=== PATIENT | male | born 1965 | race African-American/Black ===

== ENCOUNTER → 2021-03-03 | Day surgery (SDC) | payer OTHER ==
[~2021-03-03] MED LIST: BISA-42 PO; ERGO500089 PO; GLUC-11 PO; HYDROmorphone 2 MG/ML VIAL IVP PRN; IBUP-1007 PO; IV RINGERS,LACTATED 1000ML 1,000 ML IV SCH; LIDOCAINE 2% PF 5 ML VIAL. ONE; MORPHINE SULFATE 2 MG/ML INJ. IVP PRN; PHENYLEPHRINE in 0.9% NACL PF 1 MG/10 ML SYRINGE. IV ONE; PROCHLORPERAZINE 10 MG/2 ML VIAL. IVP PRN; PROPOFOL 10 MG/ML (20ML) VIAL. IV ONE; ROPI3TAB4 PO; UBID100C26 PO; VITA100022 PO; ePHEDrine PF IN SALINE 50 MG/10 ML SYRINGE. IV ONE; fentaNYL PF VIAL 100 MCG/2 ML VIAL IVP PRN
[2021-03-03 06:16] VITALS: BP 140/83
[2021-03-03 07:59] VITALS: BP 129/66
--- NOTE | 2021-03-03 11:47 | CONS ---
DATE OF CONSULTATION: 03/03/2021 GASTROENTEROLOGY CONSULTATION REFERRING PHYSICIAN: Timoteo Seaman. REASON FOR CONSULTATION: Anemia. HISTORY OF PRESENT ILLNESS: A 55-year-old -[place] male with past medical history significant for osteoarthrosis status post hip replacement, appendectomy, is seen for anemia. Bowel habits have been regular without diarrhea or constipation. There has been no family history of colon polyps or colon cancer. He has not undergone previous studies. Weight and appetite are stable. He is otherwise without additional complaints. PAST MEDICAL HISTORY: Osteoarthrosis, status post back surgeries x 2, hip replacements x 3, appendectomy. ALLERGIES: FENTANYL, HYDROCODONE. MEDICATIONS: Dulcolax, vitamin D, glucosamine, ibuprofen, Robinul, coenzyme Q, and vitamin E. SOCIAL HISTORY: Does not smoke or drink. FAMILY HISTORY: Noncontributory. REVIEW OF SYSTEMS: HEENT: There is no decreased hearing or visual acuity issues. CARDIAC: No history of hypertension, palpitations, syncope. PULMONARY: No shortness of breath, productive cough, asthma. renal disease. GENITOURINARY: No dysuria, frequency, hematuria. GASTROINTESTINAL: See history of present illness. DERMATOLOGIC: No skin rashes or pruritus. HEMATOLOGIC: History of anemia. ENDOCRINE: No history of heat or cold intolerance, thyroid disease, diabetes. NEUROLOGIC: No stroke, migraine or neuropathy. PSYCHIATRIC: No mood swings, depression or insomnia. PHYSICAL EXAMINATION: VITAL SIGNS: Temperature 98, pulse 76, respiratory rate 18. LUNGS: Clear. CARDIOVASCULAR: Reveals an S1, S2, without S3, S4 or appreciable murmur. ABDOMEN: Soft abdomen, normal bowel sounds without appreciable hepatosplenomegaly. EXTREMITIES: Reveals no cyanosis, clubbing or edema. IMPRESSION: Anemia, etiology is to be determined: Colon polyps, colon cancer, AVMs certainly in the differential; therefore, recommend proceeding with colorectal screening to further assess. Risks, benefits have been discussed. The patient is willing to proceed at this time. Thank you Timoteo Seaman for allowing us to consult and participate in the patient's care. ALICIA/DOLORES/EMILY DR: Glenda TID: [id number] CC: BRISSA BLAND
== END | disposition home or self-care (01) ==
LOC: ENDOS 05:53 → EEVIPCON 07:00
PROVIDERS: ATTEND Internal Medicine Gastroenterology
DX: D50.9 Iron deficiency anemia, unspecified (principal); K64.0 First degree hemorrhoids; K57.30 Diverticulosis of large intestine without perforation or abscess without bleeding; K63.89 Other specified diseases of intestine; M19.90 Unspecified osteoarthritis, unspecified site; Z79.899 Other long term (current) drug therapy; Z98.890 Other specified postprocedural states
CPT/HCPCS: 45378; J2370; J2704